=== PATIENT | female | born 1975 | race Two or more races ===

== ENCOUNTER 2018-08-15 17:17 | Emergency (ER) | payer MEDICAID ==
[~2018-08-15] VITALS: Ht 154.9 cm; Wt 57.0 kg
[2018-08-15] MEDS ORDERED: KETOROLAC TROMETHAMINE 30 MG/ML VIAL IVP ONE (18:15)
[2018-08-15] MEDS ORDERED: SODIUM CHLORIDE 0.9% 1,000 ML IV ONE (18:15)
[2018-08-15 18:18] LABS: EOSINOPHILS % (AUTO) 6.9 % (1.0-6.0); HEMATOCRIT 24.3 % (36-46); LYMPHOCYTES # (AUTO) 2.4 K/uL (1.0-4.8); LYMPHOCYTES % (AUTO) 46.2 % (22.0-44.0); MEAN CORPUSCULAR HEMOGLOBIN 15.7 pg (26.0-34.0); MEAN CORPUSCULAR VOLUME 56 fL (80-100); MONOCYTES # (AUTO) 0.4 K/uL (0.1-1.0); MONOCYTES % (AUTO) 8.3 % (2.0-9.0); NEUTROPHILS # (AUTO) 1.9 K/uL (1.8-7.7); NEUTROPHILS % (AUTO) 36.6 % (40.0-70.0); PLATELET COUNT (AUTO) 568 K/uL (150-450); RED BLOOD CELL COUNT(AUTO) 4.34 MIL/uL (4.00-5.20); RED CELL DISTRIBUTION WIDTH 20.6 % (11.5-14.5)
[2018-08-15 18:27] LABS: ANION GAP 5 mmol/L (8-16); CALCIUM, TOTAL 8.5 mg/dL (8.8-10.5); CARBON DIOXIDE 30 mmol/L (22-29); CHLORIDE 103 mmol/L (98-107); CREATININE 0.51 mg/dL (0.60-1.30); GLOMERULAR FILTR. RATE CALC > 60 mL/min (>60); GLUCOSE,RANDOM 92 mg/dL (70-110); SODIUM SERUM 138 mmol/L (136-145); UREA NITROGEN, BLOOD 12 mg/dL (7-18)
[2018-08-15 18:28] LABS: HEMOGLOBIN 6.8 g/dL (12.0-16.0)
[2018-08-15 18:33] LABS: ALANINE AMINOTRANSFERASE 38 U/L (12-78); ALKALINE PHOSPHATASE 171 U/L (46-116); ASPARTATE AMINOTRANSFERASE 30 U/L (15-37); BILIRUBIN,TOTAL 0.3 mg/dL (0.1-1.0); LIPASE 202 U/L (73-393); TOTAL PROTEIN, SERUM 8.6 g/dL (6.4-8.2)
[2018-08-15 18:40] LABS: PATHOLOGY REVIEW, DIFF YES; PLATELET MORPHOLOGY COMMENT GIANT PLTS PRESENT
[2018-08-15 19:04] LABS: APPEARANCE,URINE CLEAR (CLEAR); BILIRUBIN,URINE NEGATIVE (NEGATIVE); GLUCOSE, URINE (UA) NEGATIVE (NEGATIVE); KETONES,URINE NEGATIVE (NEGATIVE); LEUKOCYTE ESTERASE ,URINE NEGATIVE (NEGATIVE); NITRATE,URINE NEGATIVE (NEGATIVE); OCCULT BLOOD,URINE MODERATE (NEGATIVE); PROTEIN,URINE NEGATIVE (NEGATIVE); UROBILINOGEN,URINE 0.2 mg/dL (<=1.0)
[2018-08-15] MEDS ORDERED: IOVERSOL 320 MG/ML 100 ML VIAL ONE (19:11)
[2018-08-15] MEDS ORDERED: SODIUM CHLORIDE 0.9% 0 ML ONE (19:11)
[2018-08-15 19:12] LABS: HCG,QUANTITATIVE < 1 mIU/mL (0-6)
[2018-08-15 19:26] LABS: BACTERIA,URINE Rare /HPF (None Seen); SQUAMOUS EPITHELIAL CELL,UR Few /LPF (None Seen); WBC,URINE 0-2 /HPF (0-5)
[2018-08-15 21:10] VITALS: BP 129/69
[2018-08-15 21:25] VITALS: BP 129/78
[2018-08-15 21:40] VITALS: BP 131/74
[2018-08-15 21:55] VITALS: BP 129/69
[2018-08-15 22:25] VITALS: BP 123/71
[2018-08-15 22:55] VITALS: BP 121/79
[2018-08-16] VITALS (7 sets, daily range): BP systolic 131–142; BP diastolic 61–97
== END 2018-08-16 03:50 | disposition home or self-care (01) ==
LOC: EMS 17:19
DX: N93.8 Other specified abnormal uterine and vaginal bleeding (principal); D64.9 Anemia, unspecified; N92.0 Excessive and frequent menstruation with regular cycle; Z91.013 Allergy to seafood; Z88.0 Allergy status to penicillin
CPT/HCPCS: 36415; 36430; 74176; 80053; 81001; 81003; 83690; 84702; 85025; 86850; 86900; 86901; 86920; 96374; 99285; J1885; J7030; P9016; J7050

== ENCOUNTER 2020-04-25 22:02 | Emergency (ER) | payer MEDICAID ==
[~2020-04-25] VITALS: Ht 154.9 cm; Wt 72.7 kg
[2020-04-25] MEDS ORDERED: DEXAMETHASONE 4 MG TABLET PO ONE (23:00)
[2020-04-25] MEDS ORDERED: DiphenhydrAMINE HCL 25 MG CAPSULE PO ONE (23:00)
[2020-04-26 00:29] VITALS: BP 137/85
== END 2020-04-26 00:38 | disposition home or self-care (01) ==
LOC: EMS 22:02
DX: H57.89 Other specified disorders of eye and adnexa (principal); R09.81 Nasal congestion; Z91.013 Allergy to seafood; Z88.0 Allergy status to penicillin; T39.315A Adverse effect of propionic acid derivatives, initial encounter; Y92.89 Other specified places as the place of occurrence of the external cause
CPT/HCPCS: 99283; J8540